=== PATIENT | female | born 1960 | race Caucasian/White ===

== ENCOUNTER → 2020-05-03 | Outpatient (CLI) | payer BC | LOC: ZCOL.LAB 16:36 | DX: U07.1 COVID-19 (principal) ==

== ENCOUNTER → 2020-10-17 | Outpatient (CLI) | payer BC ==
[~2020-10-17] MED LIST: ZOCOR 10MG10 MG PO
== END ==
LOC: COL.RAD 13:54
DX: R22.1 Localized swelling, mass and lump, neck (principal)

== ENCOUNTER → 2020-11-06 | Outpatient (CLI) | payer BC ==
[~2020-11-06] VITALS: Ht 170.2 cm; Wt 101.0 kg
[2020-11-06 13:42] VITALS: BP 138/85; PULSE 84
--- NOTE | 2020-11-06 14:25 | NUR ---
procedure cancelled by dr llamas
== END ==
LOC: COL.RAD 13:26
DX: R22.1 Localized swelling, mass and lump, neck (principal)

== ENCOUNTER 2021-10-25 07:24 | Day surgery (SDC) | payer BC ==
[~2021-10-25] VITALS: Ht 168.9 cm; Wt 102.7 kg
[2021-10-25] MEDS ORDERED: OSCAL 500 TAB500 MG PO (07:36)
[2021-10-25] MEDS ORDERED: EPA FISH OIL1 SGL PO (07:36)
[2021-10-25 07:57] VITALS: BP 111/71; PULSE 91; TEMP 97.3
[2021-10-25 09:35] VITALS: BP 107/67; PULSE 87; TEMP 96.7
[2021-10-25 09:50] VITALS: BP 116/80; PULSE 70
[2021-10-25 10:05] VITALS: BP 99/63; PULSE 69
--- NOTE | 2021-10-25 10:15 | NUR ---
0935 PT RETURNED TO [facility] VIA CART. TRANSFERED TO CHAIR WITH RN ASSIST. ALERT AND ORIENTED, BUT DROWSY. MONITORS ATTACHED, INTERVALS AND ALARMS SET. PT DENIES PAIN OR NAUSEA. SPRITE AND MUFFIN PROVIDED. CALL LIGHT IN REACH. 0950 VSS. PT TOLERATING FOOD AND DRINK WELL. RIDE CALLED. 1005 VSS. WARM BLANKETS PROVIDED. IV DISCONTINUED WITHOUT COMPLICATIONS. PT ALLOWED TO DRESS. WAITING FOR DR. SANTILLAN TO SPEAK WITH PT.
--- NOTE | 2021-10-25 10:30 | NUR ---
REVIEWED DISCHARGE INSTRUCTIONS AND EDUCATOIN PACKET, ANSWERED ALL QUESTIONS. PT VERBALIZED UNDERSTANDING.
--- NOTE | 2021-10-25 10:40 | NUR ---
1030 DR IN TO SPEAK WITH PT. OK TO D/C PER DR. SANTILLAN. 1040 PT TRANSFERED VIA WHEELCHAIR TO PERSONAL VEHICLE TO BE DRIVEN HOME BY .
== END 2021-10-25 10:40 | disposition home or self-care (01) ==
LOC: SDCO 07:24
DX: Z12.11 Encounter for screening for malignant neoplasm of colon (principal); D12.0 Benign neoplasm of cecum; E66.01 Morbid (severe) obesity due to excess calories
CPT/HCPCS: J2704; J7030